=== PATIENT | female | born 1950 | race African-American/Black ===

== ENCOUNTER 2018-10-04 15:51 | Emergency (ER) | payer BC ==
[~2018-10-04] VITALS: Ht 167.6 cm; Wt 86.6 kg
[2018-10-04 16:31] VITALS: BP 132/63
[2018-10-04] MEDS ORDERED: methylPREDNISolone SOD SUCC 125 MG/2 ML VL IM ONE (17:00)
[2018-10-04] MEDS ORDERED: METHOCARBAMOL 500 MG TAB PO ONE (17:00)
== END 2018-10-04 18:09 | disposition home or self-care (01) ==
LOC: ER 16:10
DX: S13.9XXA Sprain of joints and ligaments of unspecified parts of neck, initial encounter (principal); Z90.49 Acquired absence of other specified parts of digestive tract; V49.9XXA Car occupant (driver) (passenger) injured in unspecified traffic accident, initial encounter; Y93.89 Activity, other specified; Y92.89 Other specified places as the place of occurrence of the external cause; Y99.8 Other external cause status
CPT/HCPCS: 70450; 72040; 72125; 96372; 99284; J2930